=== PATIENT | male | born 1995 | race Two or more races ===

== ENCOUNTER 2020-07-02 13:03 | Inpatient (IN) | payer MEDICAID ==
[~2020-07-02] VITALS: Ht 152.4 cm; Wt 66.0 kg
[2020-07-02 14:21] LABS: Urine Bacteria NONE SEEN /hpf (None Seen); Urine Blood 1+ /uL (Negative); Urine Specific Gravity 1.017 (1.001-1.035); Urine WBC 9 /hpf (0 - 3)
[2020-07-02 14:57] LABS: Basophils # (auto) 0 10 ^3/uL (0-0.2); Basophils % (auto) 0.2 % (0.0-2.0); Eosinophils # (auto) 0.1 10 ^3/uL (0-0.8); Eosinophils % (auto) 1.4 % (0.0-7.0); Hematocrit 49.8 % (41.0-53.0); Hemoglobin 15.8 g/dL (13.5-17.5); Lymphocytes # (auto) 1.8 10 ^3/uL (0.4-5.4); Lymphocytes % (auto) 19.4 % (10.0-50.0); Mean Corpuscular Hemoglobin 30.1 pg (28.0-32.0); Mean Corpuscular Hgb Conc. 31.7 g/dL (32.0-36.0); Mean Corpuscular Volume 95.2 fL (80.0-100.0); Monocytes # (auto) 0.7 10 ^3/uL (0-1.3); Monocytes % (auto) 7.7 % (0.0-12.0); Neutrophils # (auto) 6.7 10 ^3/uL (1.6-8.6); Neutrophils % (auto) 71.3 % (37.0-80.0); Platelet Count (auto) 239 10^3/uL (140-450); Red Blood Cells 5.23 10^6/uL (4.5-5.90); Red Cell Distribution Width 13.6 % (11.8-14.3); White Blood Cell 9.4 10^3/uL (4.4-10.8)
[2020-07-02] MEDS ORDERED: SODIUM CHLORIDE 0.9% 1,000 ML IVB ONE (16:45)
[2020-07-02] MEDS ORDERED: metroNIDAZOLE 500MG/100ML 100 ML IV ONE (16:45)
[2020-07-02] MEDS ORDERED: cefTRIAXone 1GM/50ML D5W 50 ML IV ONE (16:45)
[2020-07-02] MEDS ORDERED: NITROGLYCERIN 0.4 MG SL TAB SL PRN ×2 (19:00→19:30)
[2020-07-02] MEDS ORDERED: MORPHINE SULF INJ 2 MG/ML SYRINGE 1ML IV PRN ×3 (19:00→19:30)
[2020-07-02] MEDS ORDERED: ONDANSETRON HCL 4 MG/2 ML VIAL IV PRN (19:30)
[2020-07-02] MEDS ORDERED: PANTOPRAZOLE 40 MG/10 ML VIAL INJ IV ONE (19:30)
[2020-07-02] MEDS ORDERED: LORazepam 0.5 MG TAB PO PRN (19:30)
[2020-07-02] MEDS ORDERED: ACETAMINOPHEN 325 MG TAB PO PRN (19:30)
[2020-07-02] MEDS ORDERED: HYDROcodone-ACET 5/325MG TAB PO PRN (19:30)
[2020-07-02] MEDS ORDERED: DOCUSATE SOD 100 MG CAP PO PRN (19:30)
[2020-07-02] MEDS ORDERED: ALUM & MAG HYDROX-SIMETH LIQ(MAALOX) 30 ML PO PRN (19:30)
[2020-07-02] MEDS ORDERED: ACET-1516 PO (19:50)
[2020-07-02] MEDS ORDERED: AMOX200C PO (19:50)
[2020-07-02] MEDS ORDERED: IBUP200C95 PO (19:50)
[2020-07-02 20:13] LABS: Alanine Aminotransferase 291 U/L (16-61); Albumin 3.9 g/dL (3.4-5.0); Anion Gap 8 (5-15); Blood Urea Nitrogen 9 mg/dL (7-18); Calcium 9.5 mg/dL (8.5-10.1); Carbon Dioxide 25 mmol/L (21-32); Chloride 103 mmol/L (98-107); Glucose 84 mg/dL (74-106); Potassium 4.1 mmol/L (3.5-5.1); Sodium 136 mmol/L (136-145)
[2020-07-02 20:30] LABS: Alkaline Phosphatase 154 U/L (45-117); Total Protein 9.6 g/dL (6.4-8.2)
[2020-07-02 20:47] LABS: Aspartate Aminotransferase 81 U/L (15-37); BUN/Creatinine Ratio 8.3; GFR African American 106 mL/min; GFR Non-African American 88 mL/min
[2020-07-02 20:48] LABS: Bilirubin, Total 1.1 mg/dL (0.2-1.0); Lipase 93 U/L (73-393)
[2020-07-02] MEDS: SODIUM CHLORIDE 0.9% 1,000 ML IV SCH (21:24)
[2020-07-02 21:33] LABS: Amphetamine Screen, Urine NEGATIVE (NEGATIVE); Barbiturate Scree,Urine NEGATIVE (NEGATIVE); Benzodiazephine Screen, Urine NEGATIVE (NEGATIVE); Cannabinoid Screen, Urine NEGATIVE (NEGATIVE); Cocaine Screen, Urine NEGATIVE (NEGATIVE); Opiate Scree,Urine NEGATIVE (NEGATIVE); Phencyclidine Screen, Urine NEGATIVE (NEGATIVE)
[2020-07-02 22:00] VITALS: BP 136/79
[2020-07-02] MEDS: metroNIDAZOLE 500MG/100ML 100 ML IV SCH (22:35)
[2020-07-02 22:42] VITALS: BP 136/79
[2020-07-03 05:00] VITALS: BP 141/83
[2020-07-03] MEDS: metroNIDAZOLE 500MG/100ML 100 ML IV SCH ×2 (05:50→14:16)
[2020-07-03 08:15] VITALS: BP 123/71
[2020-07-03 08:48] VITALS: BP 123/71
[2020-07-03] MEDS ORDERED: ENOXAPARIN SOD 40 MG/0.4 ML SYRINGE SC SCH (10:00)
[2020-07-03] MEDS ORDERED: PANTOPRAZOLE 40 MG/10 ML VIAL INJ IV SCH (10:00)
[2020-07-03] MEDS ORDERED: CEFTRIAXONE SODIUM 2 GM in D5W 5% 50 ML IV SCH (10:00)
[2020-07-03 12:25] VITALS: BP 135/78
[2020-07-03] MEDS: SODIUM CHLORIDE 0.9% 1,000 ML IV SCH (14:16)
[2020-07-03] MEDS ORDERED: METR500T PO (16:15)
[2020-07-03] MEDS ORDERED: LEVO-28 PO (16:15)
[2020-07-03] MEDS ORDERED: ONDA-144 PO (16:17)
[2020-07-03] MEDS ORDERED: IBUP400T21 PO (16:17)
[2020-07-03 16:32] VITALS: BP 136/82
[2020-07-03 21:09] LABS: Cholesterol 278 mg/dL (< 200); HDL Cholesterol 52 mg/dL (40-59); LDL Cholesterol 202 mg/dL (< 100); Triglycerides 231 mg/dL (< 150)
== END 2020-07-03 18:30 | disposition home or self-care (01) | DRG 244 ==
LOC: ER 13:03 → TELE-WESTW 13:04
PROVIDERS: ADMIT Hospitalist; ATTEND Internal Medicine
DX: K57.32 Diverticulitis of large intestine without perforation or abscess without bleeding (principal); R65.10 Systemic inflammatory response syndrome (SIRS) of non-infectious origin without acute organ dysfunction; K76.0 Fatty (change of) liver, not elsewhere classified; K59.04 Chronic idiopathic constipation
CPT/HCPCS: 36415; 74176; 80053; 80061; 80307; 81001; 83036; 83690; 83735; 84484; 85025; 87040; 87086; 96361; 96365; 96367; 96375; C9113; G0378; J0696; J3490; J7060